=== PATIENT | female | born 1945 | race Caucasian/White ===

== ENCOUNTER → 2017-03-13 | Outpatient (CLI) | payer MEDICARE, OTHER | END | disposition home or self-care (01) | LOC: CFH 09:45 | PROVIDERS: ATTEND Internal Medicine | DX: Z12.31 Encounter for screening mammogram for malignant neoplasm of breast (principal); M85.88 Other specified disorders of bone density and structure, other site | CPT/HCPCS: 77080; G0202 ==

== ENCOUNTER → 2019-04-04 | Outpatient (CLI) | payer MEDICARE | END | disposition home or self-care (01) | LOC: RAD 14:28 | PROVIDERS: ATTEND Internal Medicine | DX: M50.322 Other cervical disc degeneration at C5-C6 level (principal); M48.02 Spinal stenosis, cervical region; M47.812 Spondylosis without myelopathy or radiculopathy, cervical region | CPT/HCPCS: 72040 ==

== ENCOUNTER 2019-05-14 09:03 | Outpatient (CLI) | payer MEDICARE | END 2019-05-14 23:59 | disposition home or self-care (01) | LOC: CFH 09:03 | PROVIDERS: ATTEND Internal Medicine | DX: Z12.31 Encounter for screening mammogram for malignant neoplasm of breast (principal); N64.89 Other specified disorders of breast | CPT/HCPCS: 77063; 77067 ==

== ENCOUNTER 2019-06-03 08:17 | Outpatient (CLI) | payer MEDICARE | END 2019-06-03 23:59 | disposition home or self-care (01) | LOC: CFH 08:17 | PROVIDERS: ATTEND Specialist | DX: D69.6 Thrombocytopenia, unspecified (principal) | CPT/HCPCS: 76700 ==

== ENCOUNTER → 2019-08-27 | Outpatient (CLI) | payer MEDICARE ==
[~2019-08-27] MED LIST: AMLO-150 PO; ASPI-496 PO; CALC-316 PO; CHOL400C11 PO; CINN500C2 PO; EMPA10TA PO; EYE SUPPORT PO; EZET10TA70 PO; GLUC1TAB9 PO; HEAL N SOOTHE PO; LIRA0.6P SC; LOSA50TA14 PO; MEMORY PO; METF1000 PO; OMEG1CAP6 PO; TURM538C PO; UBID100C41 PO; VITA100T6 PO; [UNRECOGNIZED DRUG - OTHER] PO
[2019-08-27 14:59] LABS: ALANINE AMINOTRANSFERASE 35 U/L (12-78); ALBUMIN 4.4 g/dL (3.4-5.0); ANION GAP 9 mmol/L (5-15); CALCIUM 8.9 mg/dL (8.5-10.1); CHLORIDE 108 mmol/L (98-107); CREATININE 0.81 mg/dL (0.55-1.02)
[2019-08-27 15:03] LABS: ALKALINE PHOSPHATASE 168 U/L (45-117); BILIRUBIN,TOTAL 0.6 mg/dL (0.2-1.0); TOTAL PROTEIN 7.7 g/dL (6.4-8.2)
== END | disposition home or self-care (01) ==
LOC: STAR 13:30
PROVIDERS: ATTEND Surgery
DX: Z01.818 Encounter for other preprocedural examination (principal); I25.2 Old myocardial infarction; D05.10 Intraductal carcinoma in situ of unspecified breast; Z82.49 Family history of ischemic heart disease and other diseases of the circulatory system; Z87.891 Personal history of nicotine dependence; D05.12 Intraductal carcinoma in situ of left breast
CPT/HCPCS: 36415; 80053; 93005

== ENCOUNTER 2019-09-01 06:06 | Day surgery (SDC) | payer MEDICARE ==
[~2019-09-01] VITALS: Ht 166.4 cm; Wt 107.5 kg
[2019-09-01] MEDS ORDERED: BUPIVACAINE/PF 0.5% ONE (06:14)
[2019-09-01] MEDS ORDERED: EPINEPHRINE 1 MG/ML, 1ML ONE (06:14)
[2019-09-01] MEDS ORDERED: LACTATED RINGERS 1,000 ML IV SCH (06:31)
[2019-09-01] MEDS ORDERED: PROPOFOL 10 MG/ML, 20ML ONE ×4 (06:36→07:01)
[2019-09-01] MEDS ORDERED: CEFAZOLIN 1,000 MG ONE ×6 (06:36→07:17)
[2019-09-01] MEDS ORDERED: DEXAMETHASONE 4 MG/ML, 1ML ONE ×8 (06:36→07:20)
[2019-09-01] MEDS ORDERED: LIDOCAINE-MPF 2% ,5ML ONE ×4 (06:36→07:23)
[2019-09-01] MEDS ORDERED: FENTANYL PF 100 MCG/2ML ONE (06:36)
[2019-09-01] MEDS ORDERED: ACETAMINOPHEN 500 MG TABLET ONE (06:36)
[2019-09-01] MEDS ORDERED: SODIUM CHLORIDE 0.9% PF 10ML ONE ×3 (06:37→07:17)
[2019-09-01] MEDS ORDERED: EPHEDRINE 50 MG/ML, 1ML IVPush PRN (07:00)
[2019-09-01] MEDS ORDERED: LABETALOL 5MG/ML, 20ML IV PRN (07:00)
[2019-09-01] MEDS ORDERED: PROMETHAZINE 25 MG/ML, 1ML IV PRN (07:00)
[2019-09-01] MEDS ORDERED: MEPERIDINE/PF 25MG/ML,1ML IVPush PRN (07:00)
[2019-09-01] MEDS ORDERED: HYDROmorphone 2 MG/ML, 1ML IVPush PRN (07:00)
[2019-09-01] MEDS ORDERED: FENTANYL PF 100 MCG/2ML IV PRN (07:00)
[2019-09-01] MEDS ORDERED: hydrALAzine 20 MG/ML, 1ML IV PRN (07:00)
[2019-09-01] MEDS ORDERED: OXYcodone 5 MG/5 ML ORAL.SOL UDC PO PRN (07:00)
[2019-09-01] MEDS ORDERED: ACETAMINOPHEN 500 MG TABLET PO ONE (07:00)
[2019-09-01] MEDS ORDERED: ONDANSETRON 2MG/ML, 2ML IV PRN (07:00)
[2019-09-01] MEDS ORDERED: KETOROLAC 30 MG/1 ML ONE (07:12)
[2019-09-01] MEDS ORDERED: ONDANSETRON 2MG/ML, 2ML ONE ×2 (07:12→07:17)
[2019-09-01] MEDS ORDERED: GLYCOPYRROLATE 0.2MG/1ML, 5ML ONE (07:21)
== END 2019-09-01 09:15 | disposition home or self-care (01) ==
LOC: OUT 06:06
PROVIDERS: ATTEND Surgery
DX: D05.12 Intraductal carcinoma in situ of left breast (principal); I10 Essential (primary) hypertension; E11.9 Type 2 diabetes mellitus without complications; E78.5 Hyperlipidemia, unspecified; Z17.0 Estrogen receptor positive status [ER+]; Z79.82 Long term (current) use of aspirin; Z79.84 Long term (current) use of oral hypoglycemic drugs; Z79.899 Other long term (current) drug therapy; Z90.710 Acquired absence of both cervix and uterus; Z90.49 Acquired absence of other specified parts of digestive tract; Z98.890 Other specified postprocedural states; Z80.3 Family history of malignant neoplasm of breast; Z80.42 Family history of malignant neoplasm of prostate; Z82.3 Family history of stroke
CPT/HCPCS: 19301; 76098; 82962; 88305; 88307; J0171; J0690; J1100; J1885; J2405; J2704; J3010; J7120; 88360

== ENCOUNTER → 2019-09-10 | Outpatient (CLI) | payer MEDICARE | END | disposition home or self-care (01) | LOC: ROC 07:39 | PROVIDERS: ATTEND Radiology Radiation Oncology | DX: D05.12 Intraductal carcinoma in situ of left breast (principal) | CPT/HCPCS: 99214; G0463 ==

== ENCOUNTER 2019-12-03 11:15 | Outpatient (CLI) | payer MEDICARE | END 2019-12-03 23:59 | disposition home or self-care (01) | LOC: CFH 11:15 | PROVIDERS: ATTEND Internal Medicine | DX: Z13.820 Encounter for screening for osteoporosis (principal); M85.88 Other specified disorders of bone density and structure, other site; N95.1 Menopausal and female climacteric states | CPT/HCPCS: 77080 ==